=== PATIENT | female | born 1950 | race Caucasian/White ===

== ENCOUNTER 2018-08-29 12:47 | Inpatient (IN) | payer MEDICARE ==
[~2018-08-29] VITALS: Ht 165.1 cm; Wt 121.6 kg
[~2018-08-29 12:47] MED LIST: ADVAIR HFA 115-12 G1 INH; ADVAIR HFA115 MCG/21 INH; ALDACTONE25 MG PO; ASPIR 8181 MG PO; ASTEPRO205.5 MCG/ NASAL; BACTRIM DS TAB1 EACH PO; CALCIUM 500 +1 EAC5 PO; CHROMIUM PIC1000 MCG PO; CHROMIUM PICO200 MC1 PO; CLARITIN10 MG PO; CO Q-10100 MG PO; COREG25 M1 PO; COZAAR 50 MG TA50 M2 PO; COZAAR100 MG PO; CRESTOR10 MG PO; FISH OIL 1,001000 M2 PO; GLYBURID-METFO1 EAC2 PO; HUMALOG100 UNIT/1 SUBQ; HYDRALAZINE 2525 MG PO; HYDRALAZINE HC100 MG PO; IMDUR 60 MG TAB60 M1 PO; LASIX 20 MG TAB20 MG PO; LASIX 40 MG TAB40 M2 PO; LEVAQUIN 500 M500 M2 PO; LEVEMIR SUBQ; LEVOTHYROXIN0.137 M1 PO; LEVOXYL150 MCG PO; METFORMIN HCL500 MG PO; OMEGA-31000 M1 PO; OSTEO BI-FLEX1 EAC1 PO; OYSTER SHELL 51 EACH PO; PREDNISONE 10 M10 MG PO; PROTONIX40 M1 PO; SINGULAIR 10 MG10 M1 PO; TRILIPIX135 MG PO; VENTOLIN HFA 1818 GM INH; VITAMIN A; VITAMIN A8000 UNI1 PO; VITAMIN E400 UNIT PO; ZPAK PO; [UNRECOGNIZED DRUG - OTHER] PO; [UNRECOGNIZED DRUG - OTHER] PO
[2018-08-29 12:56] VITALS: BP 198/75
[2018-08-29] MEDS ORDERED: CLONIDINE HCL0.2 M2 PO (13:08)
[2018-08-29] MEDS ORDERED: VITAMIN D1000 UNI1 PO (13:08)
[2018-08-29 13:09] LABS: ABSOLUTE EOSINOPHILS 0.2 thou/uL (0.0-0.7); ABSOLUTE LYMPHOCYTES 1.2 thou/uL (0.8-5.3); ABSOLUTE MONOCYTES 0.6 thou/uL (0.0-1.2); ABSOLUTE NEUTROPHILS 4.7 thou/uL (1.6-8.1); BASOPHILS 0.7 %; EOSINOPHILS 2.5 %; HEMATOCRIT 26.7 % (37.0-47.0); HEMOGLOBIN 8.9 gm/dL (12.0-15.0); LYMPHOCYTES 17.3 %; MCH 28.7 pg (26.0-34.0); MCHC 33.4 g/dL (28.0-37.0); MONOCYTES 9.1 %; MPV 9.1 fl. (7.2-11.1); NUCLEATED RBCS 0 /100WBC; PLATELET COUNT* 195 thou/uL (150-400); POLYS 70.4 %; RBC 3.11 mil/uL (4.20-5.00); RDW-CV 15.5 % (10.5-14.5); WBC 6.7 thou/uL (4.0-11.0)
[2018-08-29] MEDS ORDERED: B12INJ IM (13:09)
[2018-08-29] MEDS ORDERED: GLUCOTROL5 MG PO ×2 (13:10→13:13)
[2018-08-29] MEDS ORDERED: COENZYME Q-1030 MG PO (13:11)
[2018-08-29] MEDS ORDERED: MAGOX 400400 MG PO (13:12)
[2018-08-29 13:19] LABS: ANION GAP 12 mmol/L (7-16); BUN 82 mg/dL (7-18); CALCIUM 8.5 mg/dL (8.5-10.1); CHLORIDE 103 mmol/L (98-107); CO2 24 mmol/L (21-32); GLUCOSE 228 mg/dL (70-99); POTASSIUM 4.3 mmol/L (3.5-5.1); SODIUM 139 mmol/L (136-145)
[2018-08-29 13:21] LABS: APTT 29.9 Seconds (25.0-31.3); PROTIME 9.8 Seconds (9.20-11.50)
[2018-08-29 13:30] LABS: ALBUMIN 2.7 g/dL (3.4-5.0); ALKALINE PHOSPHATASE 105 U/L (46-116); LIPASE 449 U/L (73-393); NT-PRO BRAIN NAT PEPTIDE 843 pg/mL (<300); SGOT 17 U/L (15-37); SGPT 29 U/L (30-65); TOTAL BILIRUBIN 0.2 mg/dL (<0.1-1.0); TOTAL PROTEIN 6.5 g/dL (6.4-8.2); TROPONIN-I LEVEL <0.06 ng/mL (<0.06)
--- NOTE | 2018-08-29 17:04 | EKG ---
[place] [address] ELECTROCARDIOGRAM REPORT Name: ASHWIN AMARO Room: [place] [address] ADM IN .R.#: [id number] Admission: 08/29/18 Attend Phys: Kingston Jauregui Discharge: Date of : 48 Report #: [id number] THIS REPORT FOR: //name// [facility] ED Test Date: 2018-08-29 Test Time: 12:51:29 Pat Name: ASHWIN AMARO Department: Room: [facility] Gender: F Flight Follower: CARLOS EDUARDO : 1950 Requested By: Judit Haynes Order Number: [id number] MD: Praneeth Olivier Measurements Intervals Russell Rate: 85 P: 58 IA: 213 QRS: 28 QRSD: 111 T: 40 QT: 403 QTc: 480 Interpretive Statements Sinus rhythm Borderline prolonged IA interval RSR' in V1 or V2, right VCD or RVH Compared to ECG 11/24/2014 10:07:32 Right ventricular hypertrophy now present RSR' in V1 or V2 now present Electronically Signed On 08-29-2018 17:03:43 APPLICATIONS PACKAGER by Praneeth Oilvier [email or web address] <ELECTRONICALLY SIGNED> By: Praneeth Olivier MD, FAC 08/29/18 1703 1251 1251 Praneeth Olivier MD, [facility] /EPI
[2018-08-29 21:10] VITALS: BP 184/66
[2018-08-29 21:15] VITALS: BP 195/83
[2018-08-29 21:45] VITALS: BP 188/71
[2018-08-29 23:00] VITALS: BP 164/80
[2018-08-30 00:17] VITALS: BP 164/70
[2018-08-30 04:00] VITALS: BP 124/45
--- NOTE | 2018-08-30 04:49 | NUR ---
PT RECIEVED FROM ED. SAT MAINTAINED IN 2L NC AND CPAP THROUGHOUT THE NIGHT. CALL LIGHT WITHIN REACH AND BED IN LOW POSITION. DENIES SOB AND PAIN. CALL LIGHT WITHIN REACH AND BED IN LOW POSITION. HOURLY ROUNDING DONE FOR PT SAFTEY.
[2018-08-30 08:00] VITALS: BP 169/58
[2018-08-30 11:26] VITALS: BP 133/47
--- NOTE | 2018-08-30 11:49 | NUR ---
ATTEMPTED TO MEET WITH PT, OFF UNIT
--- NOTE | 2018-08-30 13:05 | NUR ---
PATIENT ALERT VERY CONVERSATIONAL. TO STRESS TEST.
--- NOTE | 2018-08-30 14:07 | NUR ---
Nutrition: Consult received for "other." BMI: 44.3. Wt: 265#. RD educated pt on CHO diet in 2014. Pt was not in room today at time of attempted visit, 11:40. She is currently NPO. RX: glipizide, insulin, fish oil, D3, B12, aspirin. H/o CAD, CKD IV, DM II, HTN, OBE, COPD. Admitted with hypertensive emergency. Labs: BUN 82, cr 4, alb 2.7, prealb 30.6, BG 228-127. Stress test today. No nutrition interventions needed at this time. Consider mild risk. RD available for needs.
[2018-08-30] MEDS ORDERED: PREDNISONE 10 M10 MG PO (15:00)
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
[2018-08-30 15:30] VITALS: BP 165/62
--- NOTE | 2018-08-30 16:58 | 2DMMODE ---
[place] [address] 2 D/M-MODE ECHOCARDIOGRAM Name: ASHWIN AMARO Room: [address] IN [facility]#: [id number] Admission: 08/29/18 Attend Phys: Derick Roche Discharge: Date of : 48 Date of Service: 08/30/18 1658 Report #: [id number] THIS REPORT FOR: //name// APPROVED REPORT Study performed: 08/30/2018 10:48:30 EXAM: Comprehensive 2D, Doppler, and color-flow Echocardiogram Patient Location: In-Patient Room #: [facility] Status: routine BSA: 2.23 HR: 70 bpm BP: 143/53 mmHg Rhythm: NSR Other Information Study Quality: Good Indications Chest Pain 2D Dimensions IVSd: 14.98 (7-11mm) LVOT Diam: 21.37 (18-24mm) LVDd: 46.12 mm PWd: 16.03 (7-11mm) Ascending Ao: 32.03 (22-36mm) LVDs: 30.36 (25-40mm) Aortic Root: 33.25 mm Volumes Left Atrial Volume (Systole) LA ESV Index: 49.80 mL/m2 Aortic Valve AoV Peak Sebas.: 1.70 m/s AO Peak Gr.: 11.51 mmHg LVOT Max P.35 mmHg AO Mean Gr.: 6.70 mmHg LVOT Mean P.47 mmHg LVOT Max V: 1.16 m/s AO V2 VTI: 39.57 cm LVOT Mean V: 0.71 m/s TIFFANIE (VTI): 2.43 cm2 LVOT V1 VTI: 26.80 cm Mitral Valve E/A Ratio: 2.34 MV Decel. Time: 215.48 ms MV E Max Sebas.: 1.32 m/[place] [address] 2 D/M-MODE ECHOCARDIOGRAM Name: ASHWIN AMARO Room: [address] IN .R.#: [id number] Admission: 08/29/18 Attend Phys: Derick Roche Discharge: Date of : 48 Date of Service: 08/30/18 1658 Report #: [id number] MV PHT: 62.49 ms MVA (PHT): 3.52 cm2 TDI E/Lateral E': 10.15 E/Medial E': 18.86 Medial E' Sebas.: 0.07 m/s Lateral E' Sebas.: 0.13 m/s Pulmonary Valve PV Peak Sebas.: 1.14 m/s PV Peak Gr.: 5.22 mmHg Tricuspid Valve RAP Estimate: 5.00 mmHg TR Peak Gr.: 37.55 mmHg RVSP: 42.00 mmHg PA Pressure: 42.00 mmHg Left Ventricle The left ventricle is normal size. There is normal LV segmental wall motion. Mild concentric left ventricular hypertrophy. Left ventricular systolic function is normal. The left ventricular ejection fraction is within the normal range. LVEF is 60%. Grade IV - fixed restrictive diastolic dysfunction. Right Ventricle The right ventricle is normal size. The right ventricular systolic function is normal. Atria Left atrium is moderately dilated. The right atrium size is normal. Aortic Valve Mild aortic valve sclerosis. No aortic regurgitation is present. There is no aortic valvular stenosis. Mitral Valve Moderate mitral annular calcification. Mild mitral regurgitation. No evidence of mitral valve stenosis. Tricuspid Valve The tricuspid valve is normal in structure. Trace tricuspid regurgitation. Moderate pulmonary hypertension. Pulmonic Valve The pulmonary valve is normal in structure. There is no pulmonic [place]vular [place] [address] 2 D/M-MODE ECHOCARDIOGRAM Name: ASHWIN AMARO Room: [address] IN [facility]#: [id number] Admission: 08/29/18 Attend Phys: Derick Roche Discharge: Date of : 48 Date of Service: 08/30/18 1658 Report #: [id number] Great Vessels The aortic root is normal in size. IVC is normal in size and collapses >50% with inspiration. Pericardium There is no pericardial effusion. <Conclusion> The left ventricle is normal size. Mild concentric left ventricular hypertrophy. Left ventricular systolic function is normal. The left ventricular ejection fraction is within the normal range. LVEF is 60%. The right ventricle is normal size. Left atrium is moderately dilated. The right atrium size is normal. Mild aortic valve sclerosis. No aortic regurgitation is present. There is no aortic valvular stenosis. Moderate mitral annular calcification. Mild mitral regurgitation. No evidence of mitral valve stenosis. The tricuspid valve is normal in structure. IVC is normal in size and collapses >50% with inspiration. There is no pericardial effusion. There is normal LV segmental wall motion. <ELECTRONICALLY SIGNED> By: Desmond Ron MD, FACC 08/30/18 1658 57 57 Desmond Ron MD, FACC /INF
[2018-08-30 20:00] VITALS: BP 213/82
[2018-08-31] VITALS (8 sets, daily range): BP systolic 164–195; BP diastolic 67–80
--- NOTE | 2018-08-31 04:38 | NUR ---
ASSUMED CARE OF PT AFTER REPORT AT 1930.PT A&OX4. VSS. PHYSICAL ASSESSMENT COMPLETED AND CHARTED. PT ON RA/CPAP AT NIGHT WITH O2 SAT 94%. PT TRACING SR ON TELE. DENIES ANY PAIN OR SOA. PT BP 213/82- ANTIHYPERTENSIVE MEDS GIVEN. RECHECKED BP 236/96-DR LOPES INFORMED WITH NEW ORDERS. PTS BLOOD SUGAR WAS 305. PT WAS UPSET BECAUSE HER GLIPIZIDE WAS NOT UPDATED IN HER HOME MED LIST AND LOSARTAN WAS NOT REORDERED SHE IS TAKING THAT AT HOME. THIS NURSE UPDATED GLIPIZIDE ON RECONCILE RX AND EXPLAINED THAT SHE CANT HAVE LOSARTAN DUE TO HER KIDNEY FAILURE PER PROVIDER. PT RESTED WELL ON BED. CALL LIGHT WITHIN REACH.
[2018-08-31 05:30] LABS: CALCIUM 9.1 mg/dL (8.5-10.1); CREATININE 3.7 mg/dL (0.6-1.3); PHOSPHORUS* 4.8 mg/dL (2.5-4.9)
--- NOTE | 2018-08-31 11:56 | NUR ---
RECEIVED PT CARE 0700. SHE IS ALERT AND ORIENTED X4. 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 SHE IS UP AD CHUCKY IN ROOM WITH BATHROOM PRIVILEDGES. GAIT IS STEADY. AM ASSESSMENT CHARTED. MEDS GIVEN PER MAR. RESTING PART OF STRESS TEST COMPLETED. PLANNING FOR DC TODAY. PATIENT UPDATED ON PLAN OF CARE. DISCUSSED BP AND BLOOD GLUCOSE MEDICATIONS WITH PATIENT.
[2018-08-31] MEDS ORDERED: VENTOLIN HFA 1818 GM INH (14:35)
--- NOTE | 2018-08-31 15:30 | CARDNUC ---
[place] [address] CARDIAC NUCLEAR IMAGING REPORT Name: ASHWIN AMARO Room: [address] IN [facility]#: [id number] Admission: 08/29/18 Attend Phys: Derick Roche Discharge: Date of : 48 Date of Service: 08/31/18 1530 Report #: [id number] THIS REPORT FOR: //name// APPROVED REPORT Imaging Protocol: Stress Tc-99m/Rest Tc-99m 2 days Study performed: 08/30/2018 09:20:00 Indication: Chest pain, Dyspnea Patient Location: In-Patient Room #: 231 Stress Tech: Sho Love Stress Nurse: Gaby Wright RN NM Tech:RICKIE Milan Ht: 5 ft 5 in Wt: 266 lbs BSA: 2.23 m2 BMI: 44.26 Medical History Medical History: chf,copd,ckd, hyperlipidemia, hypertension, diabetes Medications: carvedilol, hydralazine, clonidine, asa 325, isosorbide Allergies: tetanus, amlodipine, diltiazem, oxycodone, spironlactone Cardiac Risk Factors: age,hyperlipidemia, hypertension, diabetes, family hx Exercise History: Sedentary Meds Held (24 hrs): carvedilol, isosorbide Resting Data Rest SPECT myocardial perfusion imaging was performed in supine position 30 minutes following the intravenous injection of 36.2 mCi of Tc-99m Sestamibi. Time of rest injection: 904 Date: 08/31/2018 Time of rest imagin The images were gated to evaluate regional wall motion and calculate left ventricular ejection fraction. Administration Route: IV Administration Site: Right Arm Pharmacologic Stress Pharmacologic stress test was performed by injecting Regadenoson 0.4 mg IV push over 10-15 seconds immediately followed by the intravenous injection of 39.0 mCi of Tc-99[place] [address] CARDIAC NUCLEAR IMAGING REPORT Name: ASHWIN AMARO Room: [address] IN [facility]#: [id number] Admission: 08/29/18 Attend Phys: Derick Roche Discharge: Date of : 48 Date of Service: 08/31/18 1530 Report #: [id number] Time of stress injection: 1145 Date: 08/30/2018 Time of stress imagin Administration Route: IV Administration Site: Right Arm Gated Stress SPECT was performed 40 minutes after stress injection. The images were gated to evaluate regional wall motion and calculate left ventricular ejection fraction. Stress only was performed in the Supine position. Stress Test Details Stress Test: Pharmacologic stress testing performed using 0.4 mg of regadenoson per 5 mL given IV over 10 seconds. Reason for pharmacologic stress test: physical limitation. HR Max Heart Rate (APMHR): 152 bpm Resting HR: 65 bpm Target HR (85% APMHR): 129 bpm Max HR Achieved: 75 bpm % of APMHR: 49 Recovery HR: 75 bpm BP Resting BP: 154/50 mmHg Max BP: 127/60 mmHg Recovery BP: 167/55 mmHg ECG Resting ECG: Sinus Rhythm, normal EKG Stress ECG: Sinus Rhythm, normal EKG ST Change: None Arrhythmia: None Recovery ECG: Sinus Rhythm, normal EKG Recovery ST Change: None Recovery Arrhythmia: None Clinical Reason for Termination: Completed protocol Exercise duration: 0 min sec Exercise capacity: 1 METs The patient tolerated Lexiscan infusion without significant symptoms. Nurse Comments hx copd, ckd, chf unable to walk on treadmill Stress ECG Conclusion The baseline 12-lead EKG shows normal sinus [place] [address] CARDIAC NUCLEAR IMAGING REPORT Name: ASHWIN AMARO Room: [address]#: [id number] Admission: 08/29/18 Attend Phys: Derick Roche Discharge: Date of : 48 Date of Service: 08/31/18 1530 Report #: [id number] or T wave abnormalities. EKGs obtained during and post Lexiscan infusion show sinus rhythm with no significant ST or T wave changes when compared to baseline. There were no stress-induced arrhythmias. Study Quality Study: Good Artifact: Mild Diaphragmatic artifact Study Data At rest, the left ventricular ejection fraction was 68%.. Post stress, the left ventricular ejection was 77%.. TID = 0.94. Perfusion Perfusion images obtained at rest in the supine position showed mild photopenia of her wall that is less pronounced on stress images. No other significant defects were identified. Wall Motion Normal left ventricular wall motion. Nuclear Conclusion ECG Findings: negative for ischemia Clinical Findings: negative for ischemia Nuclear Findings: negative for ischemia Exercise Capacity: not assessed Left Ventricular Function: normal Risk Study: low There is mild photopenia in the inferior wall that is more pronounced on rest than stress images. Wall motion in this region is normal. This is likely due to diaphragmatic attenuation artifact. No other significant fixed or reversible defects were identified. Left ventricular systolic function appears normal on gated studies. This is a low risk study. <Conclusion> The baseline 12-lead EKG shows normal sinus rhythm with no significant ST or T wave abnormalities. EKGs obtained during and post Lexiscan infusion show sinus rhythm with no significant ST or T wave changes when compared to baseline. There were no stress-induced arrhythmias. <ELECTRONICALLY SIGNED> By: Praneeth Olivier MD, FACC 08/31/18 1530 1530 153 Praneeth Olivier MD, FACC /INF
[2018-08-31] MEDS ORDERED: FLONASE 0.05%50 MCG NASAL (16:33)
[2018-08-31] MEDS ORDERED: LIPITOR 20 MG T20 M1 PO (16:35)
[2018-08-31] MEDS ORDERED: IPRAT-ALBUT 0.5-3 ML INH (16:44)
== END 2018-08-31 17:46 | disposition home or self-care (01) | DRG 391 ==
LOC: M.ERS 12:47 → M.2W 15:51 → M.TBA-ER 15:51 → M.2W 21:49
PROVIDERS: Family Medicine; Personal Emergency Response Attendant; ADMIT Internal Medicine
DX: K21.9 Gastro-esophageal reflux disease without esophagitis (principal); N17.0 Acute kidney failure with tubular necrosis; I16.1 Hypertensive emergency; I50.32 Chronic diastolic (congestive) heart failure; Z68.41 Body mass index [BMI] 40.0-44.9, adult; N18.4 Chronic kidney disease, stage 4 (severe); I13.0 Hypertensive heart and chronic kidney disease with heart failure and stage 1 through stage 4 chronic kidney disease, or unspecified chronic kidney disease; I16.0 Hypertensive urgency; E03.9 Hypothyroidism, unspecified; E78.5 Hyperlipidemia, unspecified; M19.90 Unspecified osteoarthritis, unspecified site; J44.9 Chronic obstructive pulmonary disease, unspecified; I25.119 Atherosclerotic heart disease of native coronary artery with unspecified angina pectoris; E11.65 Type 2 diabetes mellitus with hyperglycemia; E66.01 Morbid (severe) obesity due to excess calories; Z88.6 Allergy status to analgesic agent; Z88.8 Allergy status to other drugs, medicaments and biological substances; Z80.0 Family history of malignant neoplasm of digestive organs; Z88.7 Allergy status to serum and vaccine; Z79.4 Long term (current) use of insulin; Z28.21 Immunization not carried out because of patient refusal; Z79.899 Other long term (current) drug therapy

== ENCOUNTER → 2018-11-24 | Day surgery (SDC) | payer MEDICARE ==
[~2018-11-24] MED LIST changes: +B12INJ IM; +BENEFIBER1 EAC1 PO; +CLONIDINE HCL0.2 M2 PO; +CLONIDINE HCL0.3 M3 PO; +COENZYME Q-1030 MG PO; +CVS GLUCOSAMIN PO; +FLONASE 0.05%50 MCG NASAL; +FUROSEMIDE 20 M20 M1 PO; +GLUCOTROL5 MG PO; +HYDROCODONE-AP1 EAC6 PO; +IPRAT-ALBUT 0.5-3 ML INH; +ISOSORBIDE MON120 MG PO; +LIPITOR 20 MG T20 M1 PO; +MAGOX 400400 MG PO; +NOVOLOG100 UNIT/1 SUBQ; +VITAMIN D1000 UNI1 PO; +VITAMIN D5000 UNIT PO
--- NOTE | ~2018-11-24 | OP ---
[facility] [address] [place] [address] OPERATIVE REPORT Name: ASHWIN AMARO Room: [facility] [place]#: [id number] Admission: 11/24/18 Attend Phys: Brant Burrows Discharge: Date of : 48 Report #: [id number] THIS REPORT FOR: //name// CC: Jorgito Burrows DATE OF SERVICE: 11/24/2018 PREOPERATIVE DIAGNOSIS: End-stage renal disease. POSTOPERATIVE DIAGNOSIS: End-stage renal disease. OPERATION: Laparoscopic placement of tunneled intraperitoneal catheter. SURGEON: Brant Burrows M.D. ANESTHESIA: General. ESTIMATED BLOOD LOSS: Minimal. SPECIMENS: None. DESCRIPTION OF PROCEDURE: After informed consent was obtained, the patient was brought to the operating room and placed supine. SCDs were placed and working, preoperative antibiotics were administered and general anesthesia was induced. Abdomen was prepped and draped in the usual sterile fashion. A 5-mm incision was made in the left upper quadrant. A 5-mm trocar was placed under direct vision. Pneumoperitoneum was established. A left-sided 8-mm port was placed in the left rectus sheath. Catheter was placed through the 8-mm port. Catheter was then pulled back so that the internal cuff was in the rectus sheath. Catheter was then tunneled to the left side of the abdomen. It flushed easily with 700 mL of heparinized saline. It drained easily as well. The ports were removed under direct vision and the skin was closed with 4-0 Monocryl. Sterile dressings were applied. COMPLICATIONS: None. DISPOSITION: The patient was taken to recovery in satisfactory condition. By: [id number] Burrows MD /nt
[2018-11-24 09:17] LABS: HEMATOCRIT 30.7 % (37.0-47.0); HEMOGLOBIN 10.2 gm/dL (12.0-15.0); MCH 28.3 pg (26.0-34.0); MCHC 33.3 g/dL (28.0-37.0); MPV 8.8 fl. (7.2-11.1); RBC 3.62 mil/uL (4.20-5.00); RDW-CV 16.8 % (10.5-14.5); WBC 6.3 thou/uL (4.0-11.0)
[2018-11-24 09:24] LABS: CALCIUM 9.1 mg/dL (8.5-10.1); CREATININE 3.3 mg/dL (0.6-1.3); POTASSIUM 4.1 mmol/L (3.5-5.1)
== END | disposition home or self-care (01) ==
LOC: M.SUR 11-22 11:24
PROVIDERS: Surgery
DX: Z49.02 Encounter for fitting and adjustment of peritoneal dialysis catheter (principal); I12.0 Hypertensive chronic kidney disease with stage 5 chronic kidney disease or end stage renal disease; N18.6 End stage renal disease; J44.9 Chronic obstructive pulmonary disease, unspecified; Z88.8 Allergy status to other drugs, medicaments and biological substances; Z79.899 Other long term (current) drug therapy; Z98.890 Other specified postprocedural states

== ENCOUNTER 2019-11-07 19:56 | Emergency (ER) | payer MEDICARE ==
[~2019-11-07] VITALS: Ht 162.6 cm; Wt 113.4 kg
[2019-11-07] MEDS ORDERED: CLONIDINE HCL0.2 M2 PO (20:12)
[2019-11-07 22:34] LABS: URINE BILIRUBIN NEGATIVE (Negative); URINE BLOOD NEGATIVE (Negative); URINE CLARITY CLEAR; URINE COLOR YELLOW; URINE GLUCOSE-RANDOM 1+ (Negative); URINE KETONES NEGATIVE (Negative); URINE LEUKOCYTES-REFLEX NEGATIVE (Negative); URINE NITRITE-REFLEX NEGATIVE (Negative); URINE PROTEIN 3+ (Negative); URINE SPECIFIC GRAVITY 1.025 (1.005-1.030); URINE UROBILINOGEN 0.2 E.U./dl (0.2-1.0)
[2019-11-07 22:43] LABS: BACTERIA-REFLEX 1-9 Few /HPF (None Seen); HYALINE CASTS 0-3 Few /LPF (None Seen); MUCUS None Seen strn/LPF (None Seen); SQUAMOUS >10 Many /LPF (0-3)
[2019-11-07 22:44] LABS: CRYSTALS None Seen /LPF (None Seen); URINE RBC None Seen /HPF (0-2)
[2019-11-07 22:46] LABS: URINE WBC-REFLEX 0-5 Rare /HPF (0-5)
[2019-11-07] MEDS ORDERED: ASPERCREME1 EACH TOP (22:56)
[2019-11-07] MEDS ORDERED: NORCO 5-325 TA1 EAC1 PO (22:56)
[2019-11-07] MEDS ORDERED: NORFLEX100 MG PO (22:56)
[2019-11-07 23:05] VITALS: BP 177/66
== END 2019-11-07 23:05 | disposition home or self-care (01) ==
LOC: M.ERS 19:56
PROVIDERS: Nurse Practitioner
DX: M54.42 Lumbago with sciatica, left side (principal); M54.41 Lumbago with sciatica, right side; I10 Essential (primary) hypertension; E11.9 Type 2 diabetes mellitus without complications; E78.5 Hyperlipidemia, unspecified; E03.9 Hypothyroidism, unspecified; J44.9 Chronic obstructive pulmonary disease, unspecified; M19.90 Unspecified osteoarthritis, unspecified site; G47.30 Sleep apnea, unspecified; Z98.51 Tubal ligation status; Z90.49 Acquired absence of other specified parts of digestive tract; Z79.4 Long term (current) use of insulin; Z88.7 Allergy status to serum and vaccine; Z88.8 Allergy status to other drugs, medicaments and biological substances